=== PATIENT | male | born 1970 | race Caucasian/White ===

== ENCOUNTER 2025-01-15 06:26 | Emergency (ER) | payer BC ==
[~2025-01-15] VITALS: Ht 177.8 cm; Wt 127.0 kg
[2025-01-15 06:29] VITALS: O2SAT 98
[2025-01-15] MEDS: ONDANSETRON HCL 4MG/2ML INJ IV ONE ×2 (07:08→09:16)
[2025-01-15] MEDS: MORPHINE SULFATE 4 MG/ML INJ (FOR IV/IM USE) IV ONE ×2 (07:08→09:16)
[2025-01-15] MEDS: SODIUM CHLORIDE 0.9% 1,000 ML IV ONE ×2 (07:09→09:15)
[2025-01-15 07:34] LABS: BASOPHILS % 0.2 % (0.0-2.0); EOSINOPHILS % 0.7 % (0.0-5.0); HEMATOCRIT. 44.2 % (42.0-52.0); HEMOGLOBIN. 15.0 g/dL (14.0-18.0); LYMPHOCYTES % 14.1 % (20.0-50.0); MEAN PLATELET VOLUME 7.2 fl (7.4-10.4); MONOCYTES % 4.5 % (2.0-8.0); NEUTROPHILS % 80.5 % (40.0-76.0); PLATELET 203 x1000/uL (130-400); RED BLOOD CELL COUNT 4.98 mill/uL (4.7-6.1); RED CELL DISTRIBUTION WIDTH 14.3 % (11.6-14.6)
[2025-01-15 07:59] LABS: CREATININE 1.2 mg/dL (0.6-1.3); UREA NITROGEN BLOOD 16 mg/dL (9-23)
[2025-01-15 08:01] LABS: ASPARTATE AMINOTRANSFERASE 26 IU/L (<34); BILIRUBIN DIRECT 0.2 mg/dL (<=3.0); BILIRUBIN TOTAL 0.7 mg/dL (0.1-1.0); PROTEIN TOTAL 6.7 g/dL (6.0-8.3)
[2025-01-15] MEDS ORDERED: ONDA4TAB50 MT (09:17)
[2025-01-15] MEDS: IOHEXOL-300 100 ML BOTTLE ONE (09:19)
[2025-01-15 10:12] VITALS: BP 130/73; PULSE 81; RESP 16; TEMP 36.8; O2SAT 99
== END 2025-01-15 10:19 | disposition home or self-care (01) ==
LOC: ER 06:31
DX: K43.9 Ventral hernia without obstruction or gangrene (principal); I46.9 Cardiac arrest, cause unspecified
CPT/HCPCS: 80076; 80048; 83690; 85025; 36415; 74177; 96367; 96361; 96374; 96375; 99285; Q9967; J2405; J2270; J7030; Z7610